=== PATIENT | male | born 1955 | race Caucasian/White ===

== ENCOUNTER → 2017-10-13 | Outpatient (CLI) | payer BC ==
[2014-07-06 11:15] VITALS: BP 154/93
[~2017-10-13] MED LIST: CIPRO 500MG TA500 MG PO; FLOMAX 0.40.4 MG/CAP PO; PERCOCET 7.5/321 TA1 PO; PROPRANOLOL10 MG PO; SIMVASTATIN10 MG PO; TOPAMAX25 M1 PO; ZOFRAN 4MG T4 MG/TAB PO
== END ==
LOC: RAD 13:25
DX: N13.2 Hydronephrosis with renal and ureteral calculous obstruction (principal)

== ENCOUNTER → 2021-01-25 | Day surgery (SDC) | payer BC | LOC: MSO 07:28 | DX: D12.5 Benign neoplasm of sigmoid colon (principal); Z80.0 Family history of malignant neoplasm of digestive organs; K57.30 Diverticulosis of large intestine without perforation or abscess without bleeding; Z86.73 Personal history of transient ischemic attack (TIA), and cerebral infarction without residual deficits; Z85.79 Personal history of other malignant neoplasms of lymphoid, hematopoietic and related tissues; G43.909 Migraine, unspecified, not intractable, without status migrainosus; Z79.899 Other long term (current) drug therapy | CPT/HCPCS: 00811; J2704; J7120 ==

== ENCOUNTER 2021-11-20 16:39 | Emergency (ER) | payer BC ==
[~2021-11-20] VITALS: Ht 172.7 cm; Wt 121.7 kg
[2021-11-20] MEDS ORDERED: SIMVASTATIN20 M1 PO (17:08)
[2021-11-20] MEDS ORDERED: TOPIRAMATE25 MG PO (17:09)
[2021-11-20 18:10] VITALS: BP 161/99
== END 2021-11-20 18:10 | disposition home or self-care (01) ==
LOC: ED 16:39
DX: S61.211A Laceration without foreign body of left index finger without damage to nail, initial encounter (principal); N20.1 Calculus of ureter; W23.0XXA Caught, crushed, jammed, or pinched between moving objects, initial encounter

== ENCOUNTER → 2022-11-04 | Outpatient (CLI) | payer BC ==
[~2022-11-04] MED LIST changes: +SIMVASTATIN20 M1 PO; +TOPIRAMATE25 MG PO
== END ==
LOC: VAS 09:40 → RAD 09:40
DX: R60.0 Localized edema (principal)

== ENCOUNTER → 2024-01-17 | Outpatient (CLI) | payer BC ==
[2024-01-17 08:13] LABS: ALBUMIN 3.9 g/dL (3.4-4.8)
[2024-01-17 08:14] LABS: CALCIUM 9.2 mg/dL (8.3-10.5)
[2024-01-17 08:15] LABS: TOTAL PROTEIN 6.6 g/dL (6.2-8.1)
[2024-01-17 08:17] LABS: BASO # 0.02 K/mm3 (0.02-0.10); EOS # 0.28 K/mm3 (0.04-0.40); EOS % 3.8 % (0.0-4.0); HEMATOCRIT 46.4 % (42.0-52.0); HEMOGLOBIN 14.9 g/dL (13.5-18.0); LYMPH# 2.66 K/mm3 (1.50-4.00); MEAN CELL VOLUME 90 fl (78-100); MEAN CORPUSCULAR HEMOGLOBIN 29 pg (27-31); MEAN CORPUSCULAR HGB CONC 32 g/dL (33-37); MEAN PLATELET VOLUME 10.7 fl (7.4-10.4); MONO # 0.77 K/mm3 (0.20-0.80); NEU # 3.64 K/mm3 (1.40-6.50); PLATELET COUNT 223 K/mm3 (130-400); RED BLOOD COUNT 5.15 M/mm3 (4.20-5.60); RED CELL DISTRIBUTION WIDTH 14.4 % (11.5-14.5); TOTAL BILIRUBIN 0.5 mg/dL (0.2-1.2); WHITE BLOOD COUNT 7.4 K/mm3 (4.8-10.8)
== END ==
LOC: LAB 07:45
PROVIDERS: Nurse Practitioner
DX: I10 Essential (primary) hypertension (principal)